=== PATIENT | female | born 1955 | race Caucasian/White ===

== ENCOUNTER 2016-08-27 12:49 | Emergency (ER) | payer MEDICARE, MEDICAID ==
[~2016-08-27] VITALS: Ht 165.1 cm; Wt 118.2 kg
[~2016-08-27 12:49] MED LIST: ABILIFY5 MG PO; ADVAIR 250/28 DISKU1 IH; ASPIRIN 81M81 MG/TA2 PO; BUSPIRONE10 MG PO; CALCIUM 600600 MG PO; CYMBALTA 60MG60 MG PO; FOSAMAX70 MG PO; HCTZ; LIPITOR 10MG10 MG PO; NEURONTIN300 MG PO; PERCOCET 325 MG1 TA2 PO; PRILOSEC 20MG20 MG PO
[2016-08-27 12:58] VITALS: TEMP 97.1
[2016-08-27 15:24] LABS: PH 6 (5-8); URINE APPEARANCE Hazy; URINE BACTERIA Rare /hpf; URINE BILIRUBIN Negative (NEGATIVE); URINE BLOOD Negative (NEGATIVE); URINE COLOR Yellow; URINE GLUCOSE Negative (NEGATIVE); URINE KETONE Trace (NEGATIVE); URINE RBC 0-2 /hpf; URINE UROBILINOGEN Negative (NEGATIVE)
[2016-08-27 15:45] LABS: BASO % 0.3 % (0.0-2.0); EOS # 0.2 (0.0-0.7); EOS % 3.2 % (0-4.0); GRAN % 68.6 % (42.2-75.2); HEMATOCRIT 40.1 % (37.0-47.0); HEMOGLOBIN 13.6 g/dl (12.5-16.0); LYMPH # 1.5 (1.2-3.4); LYMPH % 20.4 % (20.0-51.0); MEAN CELL VOLUME 88 fl (80.0-100.0); MEAN CORPUSCULAR HEMOGLOBIN 30 pg (27.0-31.0); MEAN CORPUSCULAR HGB CONC 34 g/dl (33.0-37.0); MEAN PLATELET VOLUME 9.6 fl (7.4-10.4); MONO # 0.5 (0.1-0.6); PLATELET COUNT 176 K/mm3 (130-400); RED BLOOD COUNT 4.55 M/mm3 (4.10-5.30); REDCELL DISTRIBUTION WIDTH-CV 13.9 % (11.5-14.5); WHITE BLOOD COUNT 7.3 K/mm3 (4.8-10.8)
[2016-08-27 15:56] LABS: ADJUSTED CALCIUM 9.8 mg/dL (8.4-10.2); ALBUMIN 4.1 gm/dL (3.5-5.0); BILIRUBIN,TOTAL 0.9 mg/dL (0.0-1.0); CALCIUM 9.9 mg/dL (8.4-10.2); CREATININE, serum 1.02 mg/dL (0.52-1.25); POTASSIUM 3.6 mmol/L (3.4-5.0)
[2016-08-27 17:58] VITALS: BP 127/83; PULSE 82
== END 2016-08-27 17:58 | disposition home or self-care (01) ==
LOC: COL.ER 12:49
PROVIDERS: Emergency Medicine
DX: R07.9 Chest pain, unspecified (principal); I10 Essential (primary) hypertension; E11.9 Type 2 diabetes mellitus without complications
CPT/HCPCS: J2270; J7030; Q9967

== ENCOUNTER 2017-05-23 10:30 | Outpatient (RCR) | payer MEDICARE, MEDICAID | END 2017-06-21 09:26 | disposition home or self-care (01) | LOC: WSPT | DX: M25.562 Pain in left knee (principal); G89.29 Other chronic pain | CPT/HCPCS: G8978-GP; G8979-GP ==

== ENCOUNTER → 2017-06-20 | Outpatient (CLI) | payer MEDICARE, MEDICAID | LOC: MC.RAD 13:59 | DX: Z12.31 Encounter for screening mammogram for malignant neoplasm of breast (principal) ==

== ENCOUNTER 2017-09-12 14:40 | Emergency (ER) | payer MEDICARE, MEDICAID ==
[~2017-09-12] VITALS: Ht 165.1 cm; Wt 121.8 kg
[2017-09-12 14:46] VITALS: TEMP 99.1
[2017-09-12 18:29] LABS: BASO % 0.2 % (0.0-2.0); GRAN # 5.1 (1.4-6.5); GRAN % 79.4 % (42.2-75.2); HEMATOCRIT 36.4 % (37.0-47.0); HEMOGLOBIN 11.9 g/dl (12.5-16.0); LYMPH # 0.8 (1.2-3.4); MEAN CELL VOLUME 89 fl (80.0-100.0); MEAN CORPUSCULAR HEMOGLOBIN 29 pg (27.0-31.0); MEAN CORPUSCULAR HGB CONC 33 g/dl (33.0-37.0); MEAN PLATELET VOLUME 9.8 fl (7.4-10.4); MONO # 0.4 (0.1-0.6); MONO % 5.4 % (1.7-9.3); PLATELET COUNT 168 K/mm3 (130-400); RED BLOOD COUNT 4.11 M/mm3 (4.10-5.30); REDCELL DISTRIBUTION WIDTH-CV 14.6 % (11.5-14.5)
[2017-09-12 18:36] LABS: ALBUMIN 3.9 gm/dL (3.5-5.0); BILIRUBIN,TOTAL 0.4 mg/dL (0.0-1.0); CALCIUM 9.5 mg/dL (8.4-10.2); CREATININE, serum 0.99 mg/dL (0.52-1.25); POTASSIUM 3.8 mmol/L (3.4-5.0); TOTAL PROTEIN 6.6 gm/dL (6.4-8.2)
[2017-09-12] MEDS ORDERED: MICRO-K 10 EXT10 MEQ PO (20:11)
[2017-09-12] MEDS ORDERED: LASIX 20MG TABL20 MG PO (20:11)
[2017-09-12 20:44] VITALS: BP 164/90; PULSE 80
== END 2017-09-12 20:40 | disposition home or self-care (01) ==
LOC: COL.ER 14:40
PROVIDERS: Family Medicine
DX: R06.02 Shortness of breath (principal); E11.9 Type 2 diabetes mellitus without complications; J44.9 Chronic obstructive pulmonary disease, unspecified; Z79.82 Long term (current) use of aspirin

== ENCOUNTER 2018-01-12 10:20 | Outpatient (RCR) | payer OTHER ==
[~2018-01-12 10:20] MED LIST changes: +LASIX 20MG TABL20 MG PO; +MICRO-K 10 EXT10 MEQ PO
== END 2018-04-12 | disposition home or self-care (01) ==
LOC: WSOH
DX: M17.0 Bilateral primary osteoarthritis of knee (principal); Z79.84 Long term (current) use of oral hypoglycemic drugs; Z79.1 Long term (current) use of non-steroidal anti-inflammatories (NSAID); Z79.899 Other long term (current) drug therapy

== ENCOUNTER 2018-06-21 12:45 | Outpatient (RCR) | payer MEDICARE, MEDICAID | END 2018-07-04 11:06 | disposition home or self-care (01) | LOC: MKS.ESL.PT 12:45 | DX: M25.562 Pain in left knee (principal); G89.29 Other chronic pain | CPT/HCPCS: G8978-GP; G8979-GP; G8980-GP ==

== ENCOUNTER → 2018-08-21 | Outpatient (CLI) | payer MEDICARE, MEDICAID | LOC: MC.RAD 08:15 | DX: Z12.31 Encounter for screening mammogram for malignant neoplasm of breast (principal) ==

== ENCOUNTER 2018-12-07 11:57 | Emergency (ER) | payer MEDICARE, MEDICAID ==
[~2018-12-07] VITALS: Ht 165.1 cm; Wt 121.4 kg
[~2018-12-07 11:57] MED LIST changes: -NEURONTIN300 MG PO; +NEURONTIN600 MG/TAB PO
[2018-12-07 12:05] VITALS: BP 163/79; PULSE 72; TEMP 97.8
[2018-12-07] MEDS ORDERED: NEURONTIN300 MG/CAP PO (14:05)
== END 2018-12-07 12:41 | disposition home or self-care (01) ==
LOC: COL.ER 11:57
DX: M79.2 Neuralgia and neuritis, unspecified (principal); I11.0 Hypertensive heart disease with heart failure; I50.9 Heart failure, unspecified; Z79.82 Long term (current) use of aspirin; Z90.89 Acquired absence of other organs; J45.909 Unspecified asthma, uncomplicated; Z90.49 Acquired absence of other specified parts of digestive tract

== ENCOUNTER 2018-12-11 16:45 | Outpatient (RCR) | payer MEDICARE, MEDICAID ==
[~2018-12-11 16:45] MED LIST changes: +NEURONTIN300 MG/CAP PO
== END 2019-01-22 09:45 | disposition home or self-care (01) ==
LOC: WSPT 16:45
DX: M25.562 Pain in left knee (principal); G89.29 Other chronic pain

== ENCOUNTER → 2019-04-03 | Outpatient (CLI) | payer MEDICARE, MEDICAID ==
[~2019-04-03] VITALS: Ht 162.6 cm; Wt 123.4 kg
[~2019-04-03] MED LIST changes: +ABILIFY 10MG TA10 MG PO; -ABILIFY5 MG PO; +BUSPAR10 MG PO; -BUSPIRONE10 MG PO; +FOSAMAX 70MG TA70 MG PO; -FOSAMAX70 MG PO; +GLUCOPHAGE XR500 M1 PO; -HCTZ; +HCTZ 25MG TAB25 MG PO; -LIPITOR 10MG10 MG PO; +LIPITOR20 MG PO; +SINGULAIR 110 MG/TAB PO; +ZESTRIL 5MG5 MG PO
[2019-04-03 09:25] VITALS: BP 136/88; PULSE 80
== END ==
LOC: LIGHT 08:43
DX: E88.81 Metabolic syndrome and other insulin resistance (principal); E11.65 Type 2 diabetes mellitus with hyperglycemia; I10 Essential (primary) hypertension; E66.01 Morbid (severe) obesity due to excess calories; Z68.42 Body mass index [BMI] 45.0-49.9, adult; Z71.3 Dietary counseling and surveillance
CPT/HCPCS: G0463

== ENCOUNTER → 2019-04-16 | Outpatient (CLI) | payer MEDICARE, MEDICAID ==
[~2019-04-16] VITALS: Ht 162.6 cm; Wt 121.8 kg
== END ==
LOC: LIGHT 10:25
DX: E88.81 Metabolic syndrome and other insulin resistance (principal); E11.65 Type 2 diabetes mellitus with hyperglycemia; I10 Essential (primary) hypertension; E66.01 Morbid (severe) obesity due to excess calories; Z68.42 Body mass index [BMI] 45.0-49.9, adult; Z71.3 Dietary counseling and surveillance

== ENCOUNTER → 2019-04-17 | Outpatient (CLI) | payer MEDICARE, MEDICAID | LOC: LIGHT 13:03 | DX: E88.81 Metabolic syndrome and other insulin resistance (principal); E11.65 Type 2 diabetes mellitus with hyperglycemia; I10 Essential (primary) hypertension; E66.01 Morbid (severe) obesity due to excess calories; Z68.42 Body mass index [BMI] 45.0-49.9, adult; Z71.3 Dietary counseling and surveillance ==

== ENCOUNTER → 2019-05-07 | Outpatient (CLI) | payer MEDICARE, MEDICAID ==
[~2019-05-07] VITALS: Ht 162.6 cm; Wt 120.9 kg
[2019-05-07 16:12] VITALS: BP 130/76; PULSE 100
== END ==
LOC: LIGHT 15:31
DX: E88.81 Metabolic syndrome and other insulin resistance (principal); E11.9 Type 2 diabetes mellitus without complications; I10 Essential (primary) hypertension; E66.01 Morbid (severe) obesity due to excess calories; Z68.42 Body mass index [BMI] 45.0-49.9, adult; Z71.3 Dietary counseling and surveillance
CPT/HCPCS: G0463

== ENCOUNTER → 2019-08-06 | Outpatient (CLI) | payer MEDICARE, MEDICAID ==
[~2019-08-06] VITALS: Ht 162.6 cm; Wt 118.2 kg
[2019-08-06 15:33] VITALS: BP 130/86; PULSE 80
== END ==
LOC: LIGHT 15:20
DX: Z68.41 Body mass index [BMI] 40.0-44.9, adult (principal); E88.81 Metabolic syndrome and other insulin resistance; E11.9 Type 2 diabetes mellitus without complications; I10 Essential (primary) hypertension
CPT/HCPCS: G0463

== ENCOUNTER → 2019-09-03 | Outpatient (CLI) | payer MEDICARE, MEDICAID ==
[~2019-09-03] VITALS: Ht 162.6 cm; Wt 118.8 kg
[2019-09-03 15:12] VITALS: BP 138/50; PULSE 79
== END ==
LOC: LIGHT 10:58
DX: Z68.42 Body mass index [BMI] 45.0-49.9, adult (principal); E88.81 Metabolic syndrome and other insulin resistance; E11.9 Type 2 diabetes mellitus without complications; I10 Essential (primary) hypertension
CPT/HCPCS: G0463

== ENCOUNTER 2019-09-09 10:15 | Outpatient (RCR) | payer MEDICARE, MEDICAID | END 2019-10-17 | disposition still patient (30) | LOC: WSC | DX: M17.12 Unilateral primary osteoarthritis, left knee (principal) ==

== ENCOUNTER → 2019-12-03 | Outpatient (CLI) | payer MEDICARE, MEDICAID ==
[~2019-12-03] VITALS: Ht 162.6 cm; Wt 119.7 kg
[2019-12-03 14:55] VITALS: BP 136/76; PULSE 92
== END ==
LOC: LIGHT 13:09
DX: Z68.43 Body mass index [BMI] 50.0-59.9, adult (principal); Z98.84 Bariatric surgery status
CPT/HCPCS: G0463

== ENCOUNTER → 2020-01-07 | Outpatient (CLI) | payer MEDICARE, MEDICAID ==
[~2020-01-07] VITALS: Ht 162.6 cm; Wt 120.9 kg
[2020-01-07 15:32] VITALS: BP 126/70; PULSE 80
== END ==
LOC: LIGHT 11:07
DX: E66.01 Morbid (severe) obesity due to excess calories (principal); Z68.42 Body mass index [BMI] 45.0-49.9, adult; E88.81 Metabolic syndrome and other insulin resistance; E11.9 Type 2 diabetes mellitus without complications; I10 Essential (primary) hypertension
CPT/HCPCS: G0463

== ENCOUNTER 2020-07-24 13:47 | Outpatient (RCR) | payer MEDICARE | END 2020-10-22 | disposition still patient (30) | LOC: MKS.ESL.PT | DX: M62.81 Muscle weakness (generalized) (principal); R32 Unspecified urinary incontinence ==

== ENCOUNTER 2021-02-08 13:06 | Emergency (ER) | payer MEDICARE ==
[~2021-02-08] VITALS: Ht 160 cm; Wt 116.4 kg
[2021-02-08 13:08] VITALS: TEMP 98.7
[2021-02-08 14:29] LABS: BASO % 0.3 % (0.0-2.0); EOS # 0.2 (0.0-0.7); EOS % 3.9 % (0-4.0); GRAN % 64.7 % (42.2-75.2); HEMATOCRIT 40.6 % (37.0-47.0); HEMOGLOBIN 12.4 g/dl (12.5-16.0); LYMPH # 1.3 (1.2-3.4); LYMPH % 21.2 % (20.0-51.0); MEAN CELL VOLUME 81 fl (80.0-100.0); MEAN CORPUSCULAR HEMOGLOBIN 25 pg (27.0-31.0); MEAN CORPUSCULAR HGB CONC 31 g/dl (33.0-37.0); MEAN PLATELET VOLUME 9.6 fl (7.4-10.4); MONO # 0.6 (0.1-0.6); MONO % 9.6 % (1.7-9.3); PLATELET COUNT 226 K/mm3 (130-400); RED BLOOD COUNT 5.03 M/mm3 (4.10-5.30); REDCELL DISTRIBUTION WIDTH-CV 19.2 % (11.5-14.5)
[2021-02-08 14:39] LABS: ALBUMIN 4.1 gm/dL (3.5-5.0); BILIRUBIN,TOTAL 0.4 mg/dL (0.0-1.0); CALCIUM 9.5 mg/dL (8.4-10.2); CREATININE, serum 1.44 (0.52-1.25); POTASSIUM 3.9 mmol/L (3.4-5.0); TOTAL PROTEIN 7.1 gm/dL (6.4-8.2)
[2021-02-08 14:51] LABS: TROPONIN-I 0.014 ng/mL (0.000-0.035)
[2021-02-08 15:32] LABS: COLLECTION METHOD CLEAN CATCH
[2021-02-08 15:49] LABS: MUCOUS Present /lpf; PH 5 (5-8); SQUAMOUS EPITHELIAL 0-2 /hpf; URINE APPEARANCE Clear; URINE BACTERIA None Seen /hpf; URINE BILIRUBIN Negative (NEGATIVE); URINE BLOOD Negative (NEGATIVE); URINE COLOR Amber; URINE GLUCOSE Negative (NEGATIVE); URINE KETONE Negative (NEGATIVE); URINE LEUKOCYTE ESTERASE Negative (NEGATIVE); URINE NITRATE Negative (NEGATIVE); URINE PROTEIN(semi-quant) Negative (NEGATIVE); URINE RBC 0-2 /hpf; URINE UROBILINOGEN Negative (NEGATIVE); URINE WBC 0-2 /hpf
[2021-02-08 16:03] LABS: THYROID STIMULATING HORMONE 0.911 uIU/mL (0.350-4.940)
[2021-02-08 16:50] VITALS: BP 130/62; PULSE 80
== END 2021-02-08 16:55 | disposition home or self-care (01) ==
LOC: COL.ER 13:06
PROVIDERS: Student in an Organized Health Care Education/Training Program
DX: R42 Dizziness and giddiness (principal); I10 Essential (primary) hypertension; E11.9 Type 2 diabetes mellitus without complications; F20.9 Schizophrenia, unspecified; Z79.84 Long term (current) use of oral hypoglycemic drugs; Z79.899 Other long term (current) drug therapy
CPT/HCPCS: J7030

== ENCOUNTER 2021-05-11 08:09 | Day surgery (SDC) | payer MEDICARE ==
[~2021-05-11] VITALS: Ht 162.6 cm; Wt 109.8 kg
[2021-05-11 08:57] VITALS: BP 146/97; PULSE 100; TEMP 97.9
[2021-05-11] MEDS ORDERED: PROAIR HFA0.09 MG/AC IH (09:40)
[2021-05-11] MEDS ORDERED: FLONASEALLERGY NS (09:41)
[2021-05-11] MEDS ORDERED: VOLTAREN GEL 1%1 TU TP (09:41)
[2021-05-11] MEDS ORDERED: ATARAX 25MG25 MG/TAB PO ×2 (09:42→09:43)
[2021-05-11] MEDS ORDERED: LATUDA40 MG PO (09:43)
[2021-05-11] MEDS ORDERED: ALAVERT10 M1 PO (09:43)
[2021-05-11] MEDS ORDERED: MAG-OX 400400 MG/TAB PO (09:50)
[2021-05-11] MEDS ORDERED: ONE DAILY ESSE0.5 MG PO (09:51)
[2021-05-11 10:00] VITALS: BP 127/75; PULSE 86; TEMP 97
--- NOTE | 2021-05-11 10:00 | NUR ---
PATIENT TRANSPORTED PER CART FROM GI SUITE TO BAY 4 ACCOMPANIED BY ENDO RN. PATIENT AMBULATED FROM CART TO CHAIR WITH 1 ASSIT SLOW STEADY GAIT. MONITORS APPLIED. VSS ON ROOM AIR. PATIENT SON IN ROOM. PATIENT SPEAKS WITH STAFF AND SON. PATIENT DENIES DISCOMFORT AND NAUSEA. VERBAL REPORT RECEIVED.
[2021-05-11 10:15] VITALS: BP 132/78; PULSE 79
--- NOTE | 2021-05-11 10:15 | NUR ---
VSS ON ROOM AIR. PATIENT DRINKING CRANBERRY JUICE WITHOUT PROBLEMS. DR LARA IN ROOM AND SPEAKS WITH PATIENT AND SON. PATIENT GIVEN PUDDING TO EAT.
[2021-05-11 10:30] VITALS: BP 139/75; PULSE 82
--- NOTE | 2021-05-11 10:30 | NUR ---
VSS ON ROOM AIR. PATIENT TOLERTATES PUDDING WITHOUT PROBLEMS. DENIES DISCOMFORT AND NAUSEA. 1046 DISCHARGE INSTRUCTIONS GIVEN VERBAL AND DISCHARGE PACKET GIVEN TO PATIENT QUESTIONS ANSWERED AND PATIENT AND SON VOICED UNDERSTANDING. PATIENT CHANGES INTO [place] CLOTHES. 1O48 PATIENT DISCHARGED PER WHEEL CHAIR TO PRIVATE VECHILE DRIVEN BY SON.
[2021-05-11 10:45] VITALS: BP 138/81; PULSE 79
== END 2021-05-11 11:04 | disposition home or self-care (01) ==
LOC: SDCO 08:09
DX: Z12.11 Encounter for screening for malignant neoplasm of colon (principal); K62.1 Rectal polyp; K64.0 First degree hemorrhoids; K57.30 Diverticulosis of large intestine without perforation or abscess without bleeding; J45.909 Unspecified asthma, uncomplicated; K21.9 Gastro-esophageal reflux disease without esophagitis; I10 Essential (primary) hypertension; G47.00 Insomnia, unspecified; M19.90 Unspecified osteoarthritis, unspecified site; E11.9 Type 2 diabetes mellitus without complications; E78.5 Hyperlipidemia, unspecified; E66.9 Obesity, unspecified; M81.0 Age-related osteoporosis without current pathological fracture; F25.9 Schizoaffective disorder, unspecified; F32.A Depression, unspecified; Z90.89 Acquired absence of other organs; Z98.51 Tubal ligation status; Z79.82 Long term (current) use of aspirin; Z79.899 Other long term (current) drug therapy; Z79.84 Long term (current) use of oral hypoglycemic drugs
CPT/HCPCS: J2704; J3010; J7030

== ENCOUNTER → 2024-03-25 | Outpatient (RCR) | payer MEDICARE ==
[~2024-03-25] MED LIST changes: +ALAVERT10 M1 PO; +ALDACTONE 25MG25 M1 PO; +ATARAX 25MG25 MG/TAB PO; +BACTROBAN15 GM TOP; +CALCIUM 600 MG1 EAC2 PO; +CIPRO 250MG TA250 MG PO; +ENTRESTO 24 MG1 EACH PO; +FLONASE NASAL S16 GM NS; +FLOVENT DI100 MCG/Ac IH; +K-DUR 10 MEQ T10 MEQ PO; +LATUDA40 MG PO; +LIPITOR 80MG80 MG PO; +MAG-OX 400400 MG/TAB PO; +MOBIC 7.5MG7.5 MG PO; +MOTRIN 400400 MG/TAB PO; +MULTIPLE VITAMI1 CAP PO; +NORCO 325 MG-51 TAB PO; +ONE DAILY ESSE0.5 MG PO; +PLAVIX 75MG TAB75 MG PO; +PREDNISONE20 MG PO; +PRISTIQ 50 MG T50 MG PO; +PROAIR HFA0.09 MG/AC IH; +RT ADVAIR HFA 1112 G IH; +TOPROL XL 25MG25 MG PO; +TYLENOL 500MG500 MG PO; +VOLTAREN GEL 1%1 TU TP; +ZTLIDO1 EACH TP
== END | disposition home or self-care (01) ==
LOC: MKS.ESL.PT
DX: G89.29 Other chronic pain (principal); M25.561 Pain in right knee; M25.562 Pain in left knee